=== PATIENT | male | born 1970 | race African-American/Black ===

== ENCOUNTER 2021-12-03 13:42 | Emergency (ER) | payer MEDICAID ==
[~2021-12-03] VITALS: Ht 167.6 cm; Wt 102.0 kg
[~2021-12-03 13:42] MED LIST: ABIL5; DIVA250T4; MIRT45TA; QUET50TA
[2021-12-03 14:01] VITALS: BP 151/91
[2021-12-03] MEDS ORDERED: LISI10TA26 MT (20:49)
[2021-12-03] MEDS ORDERED: ACET-2708 MT (20:50)
== END 2021-12-03 21:39 | disposition home or self-care (01) ==
LOC: ER 13:57
DX: Z76.0 Encounter for issue of repeat prescription (principal); I10 Essential (primary) hypertension
CPT/HCPCS: 99281; 99283